=== PATIENT | male | born 1990 | race Two or more races ===

== ENCOUNTER → 2017-01-19 | Outpatient (CLI) | payer OTHER | LOC: OD 08:47 | PROVIDERS: ATTEND Orthopaedic Surgery | DX: Z01.818 Encounter for other preprocedural examination (principal) ==

== ENCOUNTER 2017-01-24 09:13 | Day surgery (SDC) | payer OTHER ==
[2017-01-19 10:02] LABS: ABSOLUTE BASOPHILS # (AUTO) 0.1 10^3/uL (0.0-0.2); ABSOLUTE EOSINOPHILS # (AUTO) 0.1 10^3/uL (0.0-0.6); ABSOLUTE MONOCYTES (AUTO) 0.5 10^3/uL (0.1-1.4); ABSOLUTE NEUT (AUTO) 4.3 10^3/uL (1.7-8.2); EOSINOPHILS % (AUTO) 1.4 % (0-6); HEMOGLOBIN 14.6 g/dL (13.5-17.0); HGB HCT DIFFERENCE 0.8; LYMPHOCYTES % (AUTO) 28.6 % (13-45); MEAN CORPUSCULAR HEMOGLOBIN 29.3 pg (27.0-33.4); MEAN CORPUSCULAR VOLUME 86 fl (80-97); RED BLOOD COUNT 4.99 10^6/uL (4.35-5.55); RED CELL DISTRIBUTION WIDTH 13.6 % (11.5-14.0)
[2017-01-19 10:26] LABS: ANION GAP 14 (5-19); BLOOD UREA NITROGEN 15 mg/dL (7-20); CALCIUM 9.5 mg/dL (8.4-10.2); CARBON DIOXIDE 24 mmol/L (22-30); CHLORIDE 105 mmol/L (98-107); CREATININE RESULT 0.82 mg/dL (0.52-1.25); GLUCOSE 122 mg/dL (75-110); SODIUM 142.6 mmol/L (137-145)
--- NOTE | 2017-01-19 11:16 | RADIOLOGY REPORT (SQ) ---
EXAM DESCRIPTION: CHEST PA/LATERAL COMPLETED DATE/TIME: 01/19/2017 10:49 am REASON FOR STUDY: PRE-OP COMPARISON: None. EXAM PARAMETERS: NUMBER OF VIEWS: two views TECHNIQUE: Digital Frontal and Lateral radiographic views of the chest acquired. RADIATION DOSE: NA LIMITATIONS: none FINDINGS: LUNGS AND PLEURA: No opacities, masses or pneumothorax. No pleural effusion. MEDIASTINUM AND HILAR STRUCTURES: No masses or contour abnormalities. HEART AND VASCULAR STRUCTURES: Heart normal size. No evidence for failure. BONES: No acute findings. HARDWARE: None in the chest. OTHER: No other significant finding. IMPRESSION: NO SIGNIFICANT RADIOGRAPHIC FINDING IN THE CHEST. TECHNICAL DOCUMENTATION: JOB ID: [id number] [employer]- All Rights Reserved
[2017-01-19 11:42] LABS: APPEARANCE,URINE CLEAR; BILIRUBIN,URINE NEGATIVE (NEGATIVE); GLUCOSE, URINE NEGATIVE (NEGATIVE); KETONES,URINE NEGATIVE (NEGATIVE); LEUKOCYTE ESTERASE,URINE NEGATIVE (NEGATIVE); NITRITE,URINE NEGATIVE (NEGATIVE); PROTEIN,URINE NEGATIVE (NEGATIVE); URINE SPECIFIC GRAVITY 1.006; UROBILINOGEN,URINE NEGATIVE mg/dL (<2.0)
--- NOTE | 2017-01-19 20:38 | EKG REPORT ---
SEVERITY:- ABNORMAL ECG - SINUS RHYTHM NONSPECIFIC T ABNORMALITIES, INFERIOR LEADS : Confirmed by: Raymond Gill MD 19-Jan-2017 20:37:12
[~2017-01-24 09:13] MED LIST: BUPIVACAINE HCL 0.5%-EPI 1:200000 INJ/PF 30 ML VIAL ONE; CEFAZOLIN 2 GM/D5W RTU 2 GM/50 ML RTUPB IV PRN; LACTATED RINGERS 1000 ML IV PRN; LIDOCAINE 0.5% INJ-PF (5 MG/ML) 50 ML SDV SUBCUT PRN
[2017-01-24] MEDS ORDERED: FENTANYL CITRATE INJ/PF 100 MCG/2 ML AMPUL ONE (09:46)
[2017-01-24] MEDS ORDERED: MIDAZOLAM 2 MG/2 ML INJ ONE (09:46)
[2017-01-24] MEDS ORDERED: ONDANSETRON HCL INJ/PF 4 MG/2 ML SDV ONE (09:46)
[2017-01-24] MEDS ORDERED: PROPOFOL INJ 200 MG/20 ML VIAL IV ONE (09:46)
[2017-01-24] MEDS ORDERED: DEXAMETHASONE SOD PHOSPHATE INJ 4 MG/1 ML VIAL ONE (09:46)
[2017-01-24] MEDS ORDERED: MORPHINE SULFATE 10 MG/ML INJ ONE (09:47)
[2017-01-24] MEDS ORDERED: IBUPROFEN INJ 800 MG/8 ML VIAL IV ONE (09:47)
[2017-01-24] MEDS ORDERED: FENTANYL CITRATE INJ/PF 100 MCG/2 ML AMPUL IV PRN ×3 (10:46)
[2017-01-24] MEDS ORDERED: MORPHINE SULFATE 10 MG/ML INJ IV PRN (10:46)
[2017-01-24] MEDS ORDERED: DIPHENHYDRAMINE HCL 50 MG/ML VIAL IV PRN (10:46)
[2017-01-24] MEDS ORDERED: MEPERIDINE HCL/PF INJ 25 MG/1 ML DISP.SYRIN IV PRN (10:46)
[2017-01-24] MEDS ORDERED: ONDANSETRON HCL INJ/PF 4 MG/2 ML SDV IV PRN (10:46)
--- NOTE | 2017-01-24 11:11 | Operative Report ---
Operative Report DATE OF SURGERY: 01/24/17 PREOPERATIVE DIAGNOSIS: Left calcaneal cyst OPERATION: Excision of left calcaneal cyst, bone graft application SURGEON: WAQAS OVALLES ANESTHESIA: LMAC TISSUE REMOVED OR ALTERED: Specimen to pathology ESTIMATED BLOOD LOSS: Minimal PROCEDURE: With the patient supine abdomen table left lower extremities prepped and draped in sterile fashion. Limb was elevated for exsanguination tourniquet inflated 280 torr. A longitudinal 7 cm long incision is made distal to the lateral malleolus. Sharp dissection was carried incision to the outer calcaneal cortex. A subperiosteal dissection is performed to expose the lateral cortex. This is then perforated using a TPS bur. The underlying cyst measuring 2 cm in greatest dimension is easily identified and is filled with a clear yellow fluid. The ayala were scraped with a curette and the contents sent for pathology. Bone graft was then used to fill the underlying defect. The tourniquet was deflated. Hemostasis obtained with electrocautery. The wound was then closed with interrupted Vicryl followed by nylon. The patient is returned to the PACU in satisfactory condition.
[2017-01-24] MEDS ORDERED: OXYCODONE HCL IR 5 MG TABLET PO PRN (11:25)
[2017-01-24] MEDS ORDERED: ONDANSETRON 4 MG TAB.RAPDIS SL PRN (11:25)
[2017-01-24] MEDS: FENTANYL CITRATE INJ/PF 100 MCG/2 ML AMPUL ONE ×3 (11:48→12:02)
--- NOTE | 2017-01-24 12:03 | RADIOLOGY REPORT (SQ) ---
EXAM DESCRIPTION: NO CHG FLUORO; FOOT LEFT 2 VIEWS COMPLETED DATE/TIME: 01/24/2017 11:27 am REASON FOR STUDY: LT FOOT CYST/GRAFT M85.40 SOLITARY BONE CYST, UNSPECIFIED SITE COMPARISON: None. FLUOROSCOPY TIME: 21 seconds. 2 images saved to PACS. TECHNIQUE: Intra-operative images acquired during surgical procedure to evaluate progress. NUMBER OF IMAGES: 2 images. LIMITATIONS: None. FINDINGS: Images of the foot acquired during surgery. IMPRESSION: IMAGE(S) OBTAINED DURING PROCEDURE. COMMENT: Quality ID [id number]: Final reports for procedures using fluoroscopy that document radiation exp osure indices, or exposure time and number of fluorographic images (if radiation exposure indices are not available) Please consult full operative report of the attending physician for description of the procedure. TECHNICAL DOCUMENTATION: JOB ID: [id number] [employer]- All Rights Reserved
--- NOTE | 2017-01-24 12:03 | RADIOLOGY REPORT (SQ) ---
EXAM DESCRIPTION: NO CHG FLUORO; FOOT LEFT 2 VIEWS COMPLETED DATE/TIME: 01/24/2017 11:27 am REASON FOR STUDY: LT FOOT CYST/GRAFT M85.40 SOLITARY BONE CYST, UNSPECIFIED SITE COMPARISON: None. FLUOROSCOPY TIME: 21 seconds. 2 images saved to PACS. TECHNIQUE: Intra-operative images acquired during surgical procedure to evaluate progress. NUMBER OF IMAGES: 2 images. LIMITATIONS: None. FINDINGS: Images of the foot acquired during surgery. IMPRESSION: IMAGE(S) OBTAINED DURING PROCEDURE. COMMENT: Quality ID [id number]: Final reports for procedures using fluoroscopy that document radiation exp osure indices, or exposure time and number of fluorographic images (if radiation exposure indices are not available) Please consult full operative report of the attending physician for description of the procedure. TECHNICAL DOCUMENTATION: JOB ID: [id number] [employer]- All Rights Reserved
[2017-01-24 14:14] VITALS: BP 125/80
== END 2017-01-24 14:15 | disposition home or self-care (01) ==
LOC: OROUT 09:13
PROVIDERS: ATTEND Orthopaedic Surgery
PROC: 0QUM0JZ Supplement Left Tarsal with Synthetic Substitute, Open Approach (ICD-10-PCS; 2017-01-24)
PROC: 0QBM0ZX Excision of Left Tarsal, Open Approach, Diagnostic (ICD-10-PCS; principal; 2017-01-24 10:15)
DX: M85.472 Solitary bone cyst, left ankle and foot (principal); Z79.899 Other long term (current) drug therapy; Z88.8 Allergy status to other drugs, medicaments and biological substances
CPT/HCPCS: 93005; 36415; 85025; 80048; 81001; 88305 ×2; 88311; 71020; 73620; 93010; 28103; C9359; J2250; J3490; J1100; S0119; J3010; J2270; J2405; J2704; J0690; J1741; 01480